=== PATIENT | female | born 1940 | race Caucasian/White ===

== ENCOUNTER 2020-10-15 03:46 | Outpatient (CLI) | payer MEDICARE, SELFPAY ==
[2020-10-15 11:40] LABS: Source Nasal/Nares
[2020-10-15 15:14] LABS: COVID-19 PCR Negative (Negative)
== END 2020-10-15 03:47 | disposition home or self-care (01) ==
PROVIDERS: PCP Family Medicine Adult Medicine; Visit Provider Internal Medicine Gastroenterology
DX: Z20.822 Contact with and (suspected) exposure to COVID-19 (principal); Z01.818 Encounter for other preprocedural examination
CPT/HCPCS: 87635